=== PATIENT | male | born 1950 | race Caucasian/White ===

== ENCOUNTER → 2016-03-31 | Outpatient (CLI) | payer OTHER ==
--- NOTE | 2016-04-01 14:31 | REP ---
PET/CT: HISTORY: Restaging plasma blastic lymphoma. Comparison PET/CT study 04/03/2015. The patient is status post chemotherapy and June 2013. TECHNIQUE: 69 minutes following the intravenous injection of a 8.0 mCi dose of F-18 FDG, three-dimensional PET scintigraphy is acquired from the skull base to the proximal thighs. Triplanar noncontrast CT scanning is acquired through the same anatomic range for attenuation correction, and image registration with scan parameters optimized to minimize radiation exposure to the patient. PET scintigraphy and CT datasets were fused and displayed on a workstation with multiplanar and projection display capability. PET/CT FINDINGS: The head and neck soft tissues remain unremarkable. No evidence of adenopathy. No abnormal hypermetabolic uptake is seen in the thoracic cavity. In the abdomen and pelvis, normal hepatic, splenic, gastrointestinal, and genitourinary FDG accumulation is seen. No abnormal hypermetabolic uptake is observed. IMPRESSION: Negative PET CT. Signed by Evelio Shipman MD 04/01/2016 03:30 P
== END | disposition home or self-care (01) ==
LOC: M RAD 08:03
PROVIDERS: ATTEND Internal Medicine Medical Oncology
DX: C83.30 Diffuse large B-cell lymphoma, unspecified site (principal)
CPT/HCPCS: 78815; A9552